=== PATIENT | female | born 1950 | race Caucasian/White ===

== ENCOUNTER 2021-12-07 10:30 | Day surgery (SDC) | payer OTHER, MEDICARE ==
[2021-12-04 08:06] LABS: BASOPHILS % (AUTO) 0.9 % (0.0-2.0); EOSINOPHILS # (AUTO) 0.1 K/uL (0.0-0.4); EOSINOPHILS % (AUTO) 1.3 % (0.0-4.0); HEMATOCRIT 40.1 % (36-48); HEMOGLOBIN 13.6 g/dL (12.0-16.0); LYMPHOCYTES # (AUTO) 1.8 K/uL (1.0-5.5); LYMPHOCYTES % (AUTO) 42.8 % (20.5-51.5); MEAN CORPUSCULAR HEMOGLOBIN 31 pg (27-31); MEAN CORPUSCULAR HGB CONC 34 % (32-36); MEAN CORPUSCULAR VOLUME 91 fL (79.0-98.0); MONOCYTES # (AUTO) 0.4 K/uL (0.0-1.0); MONOCYTES % (AUTO) 9.3 % (1.7-9.3); NEUTROPHILS # (AUTO) 1.9 K/uL (1.8-7.7); NEUTROPHILS % (AUTO) 45.7 % (40.0-70.0); PLATELET COUNT (AUTO) 149 K/uL (130-430); RED BLOOD CELL COUNT(AUTO) 4.42 MIL/uL (4.2-6.2); RED CELL DISTRIBUTION WIDTH 12.9 % (9.0-15.0); WHITE BLOOD COUNT (AUTO) 4.3 K/uL (4.8-10.8)
[2021-12-04 08:14] LABS: BILIRUBIN,URINE NEGATIVE (NEGATIVE); BLOOD, URINE NEGATIVE (NEGATIVE); COLOR,URINE YELLOW (YELLOW); GLUCOSE,URINE NEGATIVE (NEGATIVE); KETONES,URINE NEGATIVE (NEGATIVE); LEUKOCYTE ESTERASE ,URINE NEGATIVE (NEGATIVE); NITRITE, URINE NEGATIVE (NEGATIVE); PROTEIN URINE NEGATIVE (NEGATIVE); UROBILINOGEN,URINE 0.2 (0.2-1.0)
[2021-12-04 08:46] LABS: POTASSIUM 4.5 mmol/L (3.5-5.1)
[2021-12-04 08:47] LABS: CALCIUM 8.3 mg/dL (8.4-11.0); CREATININE 0.93 mg/dL (0.55-1.30)
[2021-12-04 08:55] LABS: PROTHROMBIN TIME 10.2 SECS (9.5-12.5)
[2021-12-04 09:20] LABS: CLARITY/URINE CLEAR (CLEAR)
[~2021-12-07] VITALS: Ht 157.5 cm; Wt 68.0 kg
[2021-12-07] MEDS ORDERED: NS IRRIG SOLN 1000 ML IR ONE (11:53)
[2021-12-07] MEDS ORDERED: NALOXONE HCL 2 MG/2 ML SYR (NARCAN) ONE (11:53)
[2021-12-07] MEDS ORDERED: PROPOFOL 200MG/ 20ML VIAL (DIPRIVAN) IV ONE (11:53)
[2021-12-07] MEDS ORDERED: BUPIVACAINE /EPINEPHRINE/PF 0.25% 30 ML VIAL INJ ONE (11:53)
[2021-12-07] MEDS ORDERED: fentaNYL CITRATE 250 MCG/5 ML AMP ONE (11:53)
[2021-12-07] MEDS ORDERED: SEVOFLURANE 15 MIN GAS INH ONE (11:53)
[2021-12-07] MEDS ORDERED: ONDANSETRON HCL 4 MG/2 ML VIAL ONE (11:53)
[2021-12-07] MEDS ORDERED: KETOROLAC TROMETHAMINE 30 MG VIAL IVP PRN (12:15)
[2021-12-07] MEDS ORDERED: HYDROmorphone 1 MG/ML INJ. CARTRIDGE IVP PRN (12:15)
[2021-12-07] MEDS ORDERED: ONDANSETRON HCL 4 MG/2 ML VIAL IVP PRN (12:15)
[2021-12-07 15:10] VITALS: BP_SYST 109
== END 2021-12-07 14:50 | disposition home or self-care (01) ==
LOC: SDS 10:30 → SMU 10:36 → SDS 14:50
PROVIDERS: ATTEND Orthopaedic Surgery
DX: G56.02 Carpal tunnel syndrome, left upper limb (principal); K21.9 Gastro-esophageal reflux disease without esophagitis; Z88.2 Allergy status to sulfonamides; Z96.659 Presence of unspecified artificial knee joint; Z20.822 Contact with and (suspected) exposure to COVID-19; Z79.01 Long term (current) use of anticoagulants; Z79.899 Other long term (current) drug therapy
CPT/HCPCS: 36415 ×2; 64721; 80048; 81003; 82962; 85025; 85610; 85730; 87426; J2310; J2405; J2704; J3010; J3490; U0003